=== PATIENT | male | born 1980 | race Caucasian/White ===

== ENCOUNTER 2018-07-13 09:50 | Day surgery (SDC) | END 2018-07-13 17:15 | disposition home or self-care (01) ==

== ENCOUNTER 2018-09-21 09:08 | Day surgery (SDC) | payer OTHER ==
[~2018-09-21] VITALS: Ht 167.6 cm; Wt 83.3 kg
[~2018-09-21 09:08] MED LIST: AMLO5TAB4 PO; ERGO500013 PO; INSU100I33 SC; LANT10002 PO; SEVE800T7 PO
[2018-09-21 10:32] VITALS: Ht 167.6 cm; Wt 83.3 kg
[2018-09-21 10:34] VITALS: BP 163/86; PULSE 86; RESP 16
[2018-09-21] MEDS ORDERED: HEPARIN 1000 UNITS/NS (A-LINE) 1,000 ML ONE (10:47)
[2018-09-21] MEDS ORDERED: IODIXANOL LOCM 100 ML BTL ONE (10:47)
[2018-09-21] MEDS ORDERED: LIDOCAINE 1% (MDV) 20 ML INJ ONE (10:47)
[2018-09-21] MEDS ORDERED: FENTAnyl 50 MCG/ML VIAL ONE (10:48)
[2018-09-21] MEDS ORDERED: MIDAZOLAM 1 MG/ML 2 ML INJ ONE (10:48)
--- NOTE | 2018-09-21 11:02 | HPN ---
Date/Time of Note Date/Time of Note DATE: 09/21/18 TIME: 11:02 Interval H&P Admission Note Pt. seen H&P reviewed: No system changes LA FRANKS MD Sep 21, 2018 11:02
--- NOTE | 2018-09-21 11:43 | SIPON ---
Date/Time of Note Date/Time of Note DATE: 09/21/18 TIME: 11:42 Operative Report Preoperative Diagnosis esrd Postoperative Diagnosis SAME Operation/Procedure Performed LEFT FISTULOGRAM AND motor equipment captain OF THE LEFT SUBCLAVIAN VEIN. Surgeon see signature line mobile sales assistant NONE Anesthesia: other (LOCAL) Estimated blood loss: minimal Transfusion Required none Specimen NONE Grafts/Implants none Complications none LA FRANKS MD Sep 21, 2018 11:43
[2018-09-21 12:00] VITALS: BP 128/69; PULSE 87; RESP 18
--- NOTE | 2018-09-22 00:18 | OPR ---
DATE OF OPERATION: 09/21/2018 PREOPERATIVE DIAGNOSIS: Malfunction left arteriovenous fistula. POSTOPERATIVE DIAGNOSIS: Malfunction left arteriovenous fistula. PROCEDURE: Left fistulogram and balloon angioplasty of the left subclavian vein. SURGEON: Kevin Camejo MD GENETICIST: None. ANESTHESIA: Local infiltration with 1% lidocaine. INDICATION OF THE PROCEDURE: The patient is a 38-year-old male with end-stage renal disease, receivi ng hemodialysis through left arm AV fistula, presented with pulsatile flow and recurrent ulceration a long the aneurysmal part of the fistula. He was consented for the above-mentioned procedure. Risks and benefits discussed with him. He understood and agreed to proceed. DESCRIPTION OF PROCEDURE: The patient was brought to the catheterization lab after obtaining informe d consent, placed in supine position on the fluoroscopy table. Left upper extremity was cleaned, pre pped and draped in the sterile fashion. Local anesthetic was used to infiltrate skin and subcutaneou s tissue in the area of the fistula right above the elbow. Micropuncture set needle was inserted thr ough which microwire was placed, was exchanged for micropuncture set sheath. 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 At that point, using a Glidewire, t he micropuncture set sheath was exchanged into a 6-Thai sheath. Then, the guidewire was navigated through the fistula and to the central vein to the SVC. Then using a 10 x 4 balloon, balloon angiopl asty of the subclavian vein was done with multiple inflation and deflation with significant improveme nt and residual at 50% stenosis. At that point, the sheath and the wire were removed. The bleeding from the puncture site was controlled using manual pressure. The patient was then transferred to [facility] in stable condition. Dictated By: KEVIN VELEZ/ZACKERY Conf#: [id number] DID#: [id number]
== END 2018-09-21 13:00 | disposition home or self-care (01) ==
LOC: SDS 09:08
PROVIDERS: ATTEND Surgery
DX: T82.590A Other mechanical complication of surgically created arteriovenous fistula, initial encounter (principal); Y84.1 Kidney dialysis as the cause of abnormal reaction of the patient, or of later complication, without mention of misadventure at the time of the procedure; I12.0 Hypertensive chronic kidney disease with stage 5 chronic kidney disease or end stage renal disease; N18.6 End stage renal disease; E11.9 Type 2 diabetes mellitus without complications
CPT/HCPCS: 36901; 36907; 80053; 82962; 85025; 85610; 85730; C1725; C1887; J1644; J2250; J3010; Q9967; Z7610

== ENCOUNTER 2019-01-04 05:32 | Day surgery (SDC) | payer OTHER ==
--- NOTE | 2019-01-03 21:13 | PREAC ---
Date/Time of Note Date/Time of Note DATE: 01/03/19 TIME: 21:12 Anesthesia Eval and Record Evaluation Time Pre-Procedure Interview DATE: 01/03/19 TIME: 21:12 Age 38 Sex male NPO: 8 hrs Preoperative diagnosis ESRD, clotted LEFT AV fistula Planned procedure Revision LEFT AV fistula Past Medical History Past Medical History: Includes Cardio: HTN, Dyslipidemia Endo: Diabetes Renal: ESRD on dialysis, HD last: Heme: Anemia Surgery & Anesthesia Issues No known issue Meds Anticoagulation: No Beta Carmen within 24 hr: No Reason Beta Carmen not given: Pt. not on B-Carmen Reported Medications Insulin Glargine* (Lantus*) 100 Unit/Ml Soln, 4 UNIT SC QHS, #1 VIAL 01/04/19 Nifedipine* (Nifedipine ER*) 60 Mg Tablet.sa, 60 MG PO BID, TAB.SA 01/04/19 Cinacalcet* (Sensipar*) 30 Mg Tab, 30 MG PO DAILY, TAB 01/04/19 Lanthanum Carbonate* (Fosrenol*) 1,000 Mg Tab.chew, 1000 MG PO TID, TAB.CHEW WITH MEALS 07/13/18 Sevelamer Carbonate* (Renvela*) 800 Mg Tablet, 3.2 GM PO WITH MEALS, TAB 07/13/18 Ergocalciferol (Vitamin D2) (VITAMIN D2) 50,000 Unit Capsule, 02982 UNIT PO EVERY WEDNESDAY, CAP 07/13/18 Discontinued Reported Medications Amlodipine Besylate* (Norvasc*) 5 Mg Tablet, 5 MG PO DAILY, TAB 09/14/18 Insulin Glargine,Hum.rec.anlog (Basaglar Kwikpen U-100) 100 Unit/1 Ml Insuln.pen, 6 UNIT SC QHS, EA 09/14/18 Meds reviewed: Yes Allergies Coded Allergies: Penicillins (Verified Allergy, Unknown, 01/04/19) Allergies Reviewed: Yes Labs/Studies Labs Reviewed: Reviewed by anesthesiologist (CBC, BMP, PT/INR, PTT) test: N/A Studies: ECG, CXR Pre-procedure Exam Airway: Adequate mouth opening, Adequate thyromental dist Mallampati: Mallampati II Teeth: Normal Lung: Normal Heart: Normal ASA Physical Status ASA physical status: 3 Emergency: None Planned Anesthetic General/MAC: LMA Planned Pain Management Local by surgeon Pre-operative Attestations Prior to commencing anesthesia and surgery, the patient was re-evaluated, there was verification of: *The patient's identity *The results of appropriate recent lab work and preoperative vital signs *The above evaluation not changing prior to induction *Anesthetic plan, risk benefits, alternative and complications discussed with patient/family; questions answered; patient/family understands, accepts and wishes to proceed. GURMEET MOFFETT January 03, 2019 21:13
[2019-01-04] VITALS (15 sets, daily range): BP systolic 96–163; BP diastolic 48–73; PULSE 98–104; RESP 10–18; Ht 162.6 cm; Wt 84.2 kg
[~2019-01-04] VITALS: Ht 162.6 cm; Wt 84.2 kg
[2019-01-04] MEDS ORDERED: GELATIN SIZE 100 SPONGE ONE (06:49)
[2019-01-04] MEDS ORDERED: THROMBIN (BOVINE) 5,000 UNIT VIAL TP ONE (06:49)
[2019-01-04] MEDS ORDERED: LIDOCAINE 1% (MPF) 30 ML INJ ONE (06:49)
[2019-01-04] MEDS ORDERED: HEPARIN 1000 UNITS/ML 10 ML INJ ONE ×2 (06:49→08:19)
[2019-01-04] MEDS ORDERED: BUPIVACAINE 0.25% (MPF) 30 ML INJ ONE (06:49)
[2019-01-04] MEDS ORDERED: PROPOFOL 20 ML ONE (06:59)
[2019-01-04] MEDS ORDERED: LIDOCAINE 2% (SDV) 5 ML INJ ONE (06:59)
[2019-01-04] MEDS ORDERED: FENTAnyl 50 MCG/ML VIAL ONE ×2 (06:59→08:15)
[2019-01-04] MEDS ORDERED: CEFAZOLIN 1 GM INJ ONE (06:59)
[2019-01-04] MEDS ORDERED: CINA30TA4 PO (06:59)
[2019-01-04] MEDS ORDERED: NIFE60TA18 PO (07:00)
[2019-01-04] MEDS ORDERED: MIDAZOLAM 1 MG/ML 2 ML INJ ONE (07:00)
[2019-01-04] MEDS ORDERED: LANT3I SC (07:01)
--- NOTE | 2019-01-04 07:43 | HPN ---
Date/Time of Note Date/Time of Note DATE: 01/04/19 TIME: 07:43 Interval H&P Admission Note Pt. seen H&P reviewed: No system changes LA FRANKS MD January 04, 2019 07:43
[2019-01-04] MEDS ORDERED: METOCLOPRAMIDE 10 MG INJ ONE (08:08)
[2019-01-04] MEDS ORDERED: SUCCINYLCHOLINE CHLORIDE 100 MG/5 ML SYG IV ONE (08:08)
[2019-01-04] MEDS ORDERED: ROCURONIUM 50 MG INJ ONE (08:08)
[2019-01-04] MEDS ORDERED: FAMOTIDINE 20 MG INJ ONE (08:08)
[2019-01-04] MEDS ORDERED: ONDANSETRON 4 MG INJ ONE (08:08)
[2019-01-04] MEDS ORDERED: PHENYLephrine (100 MCG/ML) 10ML SYG ONE (08:30)
[2019-01-04] MEDS ORDERED: SUGAMMADEX SODIUM 200 MG/2 ML VIAL IV ONE (08:45)
[2019-01-04] MEDS ORDERED: ONDANSETRON 4 MG INJ IV PRN (09:00)
[2019-01-04] MEDS ORDERED: hydrALAzine 20 MG INJ IV PRN (09:00)
[2019-01-04] MEDS ORDERED: OXYCODONE/ACETAMINOPHEN (5/325) TAB PO PRN ×2 (09:00)
[2019-01-04] MEDS ORDERED: HYDROmorphONE 1 MG/5 ML IV SYRINGE IV PRN ×2 (09:00)
[2019-01-04] MEDS ORDERED: ALBUTEROL 0.083% (NEB) 2.5 MG/3 ML AMP HHN PRN (09:00)
[2019-01-04] MEDS ORDERED: LABETALOL HCL 20MG INJ IV PRN (09:00)
--- NOTE | 2019-01-04 09:13 | SIPON ---
Date/Time of Note Date/Time of Note DATE: 01/04/19 TIME: 09:12 Operative Report Preoperative Diagnosis ESRD Postoperative Diagnosis Same Operation/Procedure Performed Revision of left AVF Surgeon see signature line entry level administrative assistant none Anesthesia: general Estimated blood loss: 10 - 50 ml's Transfusion Required none Specimen Skin Grafts/Implants none Complications none LA FRANKS MD January 04, 2019 09:13
[2019-01-04] MEDS: HYDROmorphONE 1 MG/5 ML IV SYRINGE IV PRN ×2 (09:35→10:01)
--- NOTE | 2019-01-04 11:33 | PAC ---
Date/Time of Note Date/Time of Note DATE: 01/04/19 TIME: 11:33 Post-Anesthesia Notes Post-Anesthesia Note Last documented vital signs Vital Signs Date Temp Pulse Resp B/P (MAP) Pulse Ox O2 O2 Flow FiO2 Time Delivery Rate 01/04/19 98 14 104/59 93 Room Air 10:28 (74) 01/04/19 21 09:41 01/04/19 98.2 09:36 Activity: WNL Respiratory function: WNL Cardiovascular function: WNL Mental status: Baseline Pain reasonably controlled: Yes Hydration appropriate: Yes Nausea/Vomiting absent: Yes GURMEET MOFFETT January 04, 2019 11:33
--- NOTE | 2019-01-04 13:32 | RADRPT ---
Vent Rate: 99 bpm RR Interval: 608 msec RI Interval: 156 msec QRS Duration: 91 msec QT Interval: 364 msec QTC Interval: 467 msec P-R-T Halsey: 63 - 7 - 72 degrees Sinus rhythm...normal P axis, V-rate 50- 99 Electronically Signed By: Norm Monaco
--- NOTE | 2019-01-04 20:49 | OPR ---
DATE OF OPERATION: 01/04/2019 PREOPERATIVE DIAGNOSIS: End-stage renal disease. POSTOPERATIVE DIAGNOSIS: End-stage renal disease. OPERATION PERFORMED: Revision of left AV fistula. SURGEON: Kevin Camejo MD COMMUNITY HEALTH DIRECTOR: None. COMPLICATIONS: None. ANESTHESIA: General. INDICATION OF THE PROCEDURE: The patient is a 38-year-old male with end-stage renal disease, receivi ng hemodialysis through a left arm AV fistula. The patient presented with aneurysmal changes, thinni ng of the skin and multiple ulcers. He was consented for the above-mentioned. Risks, benefits were discussed with him. He understood and agreed to proceed. DESCRIPTION OF PROCEDURE: The patient was brought to the operating room after obtaining informed con sent, placed in supine position on the operating table. Anesthesia was administered and maintained u sing endotracheal intubation. Area of surgery was cleaned, prepped and draped in the sterile fashion . Two elliptical incisions in a vertical fashion around the ulcers were done using 15-blade scalpel and removed carefully using 15-blade scalpel all around circumferentially. Hemostasis was achieved u sing the Bovie. Flaps were elevated laterally in both incisions using the Bovie carefully. Then ano ther incision, a transverse approximately at inflow of the fistula was done to control the fistula wi th vascular clamp. Upon completion of elevating the flaps in both incisions, subcutaneous tissue was closed using 3-0 Vicryl suture. Edges of the skin were approximated together with 4-0 Monocryl in s ubcuticular fashion. Dermabond was applied. First, I had very strong palpable thrill along the enti re length with no residual ulcers. The patient was then extubated successfully, [facility]. Dictated By: KEVIN VELEZ/ZACKERY Conf#: [id number] DID#: [id number]
== END 2019-01-04 12:12 | disposition home or self-care (01) ==
LOC: SDS 05:32
PROVIDERS: ATTEND Surgery
DX: I12.0 Hypertensive chronic kidney disease with stage 5 chronic kidney disease or end stage renal disease (principal); N18.6 End stage renal disease; E11.9 Type 2 diabetes mellitus without complications; E78.5 Hyperlipidemia, unspecified
CPT/HCPCS: 36832; 71045; 80053; 82962; 85025; 85610; 85730; 88304; 93005; 94664; J0690; J1170; J1644; J2250; J2370; J2405; J2765; J3010; Z7512; Z7610